=== PATIENT | female | born 1965 | race Two or more races ===

== ENCOUNTER 2018-04-28 09:23 | Outpatient (CLI) | payer OTHER | END 2018-04-28 09:25 | disposition home or self-care (01) | LOC: LAB 09:23 | DX: D64.89 Other specified anemias (principal); Z12.11 Encounter for screening for malignant neoplasm of colon; R19.5 Other fecal abnormalities; R73.09 Other abnormal glucose; E55.9 Vitamin D deficiency, unspecified; E53.8 Deficiency of other specified B group vitamins; E78.2 Mixed hyperlipidemia; M25.50 Pain in unspecified joint; M79.1 Myalgia ==

== ENCOUNTER 2018-06-20 10:10 | Outpatient (CLI) | payer OTHER | END 2018-06-20 16:24 | disposition home or self-care (01) | LOC: RAD 10:10 | DX: M25.562 Pain in left knee (principal) ==

== ENCOUNTER → 2018-06-30 | Outpatient (CLI) | payer OTHER | END | disposition home or self-care (01) | LOC: MRI 11:42 | DX: M25.562 Pain in left knee (principal) | CPT/HCPCS: 73721 ==

== ENCOUNTER 2018-07-31 12:46 | Outpatient (CLI) | payer OTHER | END 2018-07-31 12:52 | disposition home or self-care (01) | LOC: LAB 12:46 | DX: D64.89 Other specified anemias (principal); D68.0 Von Willebrand disease ==

== ENCOUNTER 2019-01-09 10:59 | Outpatient (CLI) | payer OTHER | END 2019-01-09 12:07 | disposition home or self-care (01) | LOC: LAB 10:59 | DX: J11.1 Influenza due to unidentified influenza virus with other respiratory manifestations (principal); A49.3 Mycoplasma infection, unspecified site ==

== ENCOUNTER 2019-11-07 13:45 | Outpatient (CLI) | payer OTHER | END 2019-11-07 15:15 | disposition home or self-care (01) | LOC: LAB 13:45 | DX: J11.1 Influenza due to unidentified influenza virus with other respiratory manifestations (principal); J06.9 Acute upper respiratory infection, unspecified ==

== ENCOUNTER 2025-02-28 06:03 | Day surgery (SDC) | payer OTHER ==
[2025-02-22 10:39] LABS: BASO % 0.5 % (0.1-1.2); EOS # 0.17 (0.04-0.54); EOS % 2.2 % (0.7-7.0); HEMATOCRIT 40.6 % (34.1-44.9); HEMOGLOBIN 13.6 g/dL (11.2-15.7); LYMPH # 3.41 (1.18-3.74); LYMPH % 44.1 % (19.3-53.1); MEAN CORPUSCULAR HEMOGLOBIN 29.3 pg (25.6-32.2); MONO # 0.37 (0.24-0.82); MONO % 4.8 % (4.7-12.5); NEUT # 3.72 (1.56-6.13); PLATELET COUNT 284 K/uL (163-369); RED BLOOD COUNT 4.64 M/uL (3.93-5.22); RED CELL DISTRIBUTION WIDTH 13.3 % (11.6-14.4)
[2025-02-22 10:50] VITALS: BP 109/73
[2025-02-22 10:54] LABS: URINE APPEARANCE Clear; URINE BILIRRUBIN Negative (NEGATIVE); URINE BLOOD Negative; URINE COLOR Yellow; URINE GLUCOSE Negative (NEGATIVE); URINE KETONE Negative (NEGATIVE); URINE LEUKOCYTE Negative; URINE NITRATE Negative; URINE PROTEIN Negative (NEGATIVE); URINE UROBILINOGEN 0.2 E.U./dl
[2025-02-22 11:00] LABS: INR 0.99; PARTIAL THROMBOPLASTIN TIME 32.2 SECONDS (22.0-34.0); PROTHROMBIN TIME 10.8 SECONDS (9.0-11.5)
[2025-02-22 11:03] LABS: URINE BACTERIA 283.9 uL (0.0-1933); URINE EPITHELIAL CELLS 7.1 uL (0.0-38.8); URINE RBC 4.5 uL (0.0-20.8); URINE WBC 15.5 uL (0.0-23.2)
[2025-02-22 11:08] LABS: URINE CAST 0.44 uL (0.0-1.40)
[2025-02-22 12:02] LABS: ALBUMIN 3.6 gm/dL (3.4-5.0); BILIRUBIN TOTAL 0.48 mg/dL (0.3-1.2); CALCIUM 8.9 mg/dL (8.5-10.1); CREATININE SERUM 0.64 mg/dL (0.55-1.02); GFR 94.65; GLOBULINA 4.1 G/DL (2.4-3.5); POTASSIUM 4.46 mEq/L (3.5-5.1); TOTAL PROTEIN 7.7 gm/dL (6.4-8.2)
[~2025-02-28] VITALS: Ht 157.5 cm; Wt 81.2 kg
[~2025-02-28 06:03] MED LIST: ACID REDUCER; ALLEGRA ALLERGY60 MG; CATAFLAN; GLUCOSAMINE HC500 MG; NEURONTIN600 M1 PO; VITAMIN D
[2025-02-28] MEDS ORDERED: POVIDONE-IODINE 118 ML BOTT TOP ONE (10:56)
[2025-02-28] MEDS ORDERED: CEFAZOLIN SODIUM 1,000 MG VIAL ONE (10:56)
[2025-02-28] MEDS ORDERED: MONODOX100 MG PO (12:11)
== END 2025-02-28 14:55 | disposition home or self-care (01) ==
LOC: CIR.AMB 06:03
PROVIDERS: ATTEND Obstetrics & Gynecology
DX: D25.0 Submucous leiomyoma of uterus (principal); N85.02 Endometrial intraepithelial neoplasia [EIN]; N95.0 Postmenopausal bleeding

== ENCOUNTER 2025-04-16 07:45 | Inpatient (IN) | payer OTHER ==
[~2025-04-16] VITALS: Ht 157.5 cm; Wt 78.0 kg
[~2025-04-16 07:45] MED LIST changes: +MONODOX100 MG PO
[2025-04-16 10:16] LABS: URINE APPEARANCE Clear; URINE BILIRRUBIN Negative (NEGATIVE); URINE BLOOD Negative; URINE COLOR Yellow; URINE GLUCOSE Negative (NEGATIVE); URINE KETONE Negative (NEGATIVE); URINE LEUKOCYTE Negative; URINE NITRATE Negative; URINE PROTEIN Negative (NEGATIVE); URINE UROBILINOGEN 0.2 E.U./dl
[2025-04-16 10:20] LABS: URINE BACTERIA 19.1 uL (0.0-1933); URINE EPITHELIAL CELLS 12.2 uL (0.0-38.8); URINE RBC 5.1 uL (0.0-20.8); URINE WBC 3.6 uL (0.0-23.2)
[2025-04-16 10:22] LABS: URINE CAST 0.29 uL (0.0-1.40)
[2025-04-16 11:18] LABS: ALT/SGPT 30.0 U/L (12-78); AST/SGOT 13.0 U/L (15-37); BILIRUBIN TOTAL 0.32 mg/dL (0.3-1.2); BUN CREA RATIO 24.0 (7.0-25.0); CREATININE SERUM 0.66 mg/dL (0.55-1.02); GFR 91.35; GLOBULINA 4.1 G/DL (2.4-3.5); GLUCOSE FASTING 92.0 mg/dL (65-100); OSMOLALITY SERUM 284.0 MOSM/KG (275-295)
[2025-04-16 11:57] VITALS: BP 118/70; BP 138/83
[2025-04-18] MEDS ORDERED: DESMOPRESSIN ACETATE 40 MCG/10 ML ML IV NR (06:00)
[2025-04-18] MEDS ORDERED: POVIDONE-IODINE 118 ML BOTT TOP ONE (08:15)
[2025-04-18] MEDS ORDERED: BUPIVACAINE HCL 30 ML VIAL IV ONE (08:15)
[2025-04-18] MEDS ORDERED: CEFOXITIN SODIUM 2,000 MG VIAL IV ONE (08:15)
[2025-04-18] MEDS ORDERED: METRONIDAZOLE/SODIUM CHLORIDE 500 MG/100 ML PIGGYBACK IV ONE (08:15)
[2025-04-18] MEDS ORDERED: LIDOCAINE HCL 1%/EPINEPHRINE 20ML VIAL IJ ONE (08:15)
[2025-04-18] MEDS ORDERED: ONDANSETRON HCL 2 MG/ML VIAL IV PRN (12:00)
[2025-04-18] MEDS ORDERED: RINGERS SOLUTION,LACTATED 1,000 ML IV SCH (12:00)
[2025-04-18] MEDS ORDERED: MORPHINE SULFATE 4 MG/ML CARTRIDGE IV PRN (12:00)
[2025-04-18] MEDS ORDERED: SIMETHICONE 125 MG CAPSULE PO SCH (13:00)
[2025-04-18] MEDS ORDERED: VISTASEAL DUAL APPICATOR 1 EACH APPL TOP ONE (14:15)
[2025-04-18] MEDS ORDERED: THROMBIN,HU/FIBRINOGEN/CALCIUM 10 ML SYRINGE TOP ONE (14:15)
[2025-04-18 15:00] VITALS: BP 118/70
[2025-04-18 20:00] VITALS: BP 112/72
[2025-04-18 20:25] LABS: BASO % 0.2 % (0.1-1.2); EOS # 0.06 (0.04-0.54); EOS % 0.5 % (0.7-7.0); LYMPH # 2.44 (1.18-3.74); LYMPH % 18.4 % (19.3-53.1); MEAN PLATELET VOLUME 10.30 fl (9.4-12.4); MONO # 0.63 (0.24-0.82); MONO % 4.7 % (4.7-12.5); NEUT # 10.09 (1.56-6.13); NEUT % 75.9 % (34.0-71.1); RED CELL DISTRIBUTION WIDTH 13.2 % (11.6-14.4)
[2025-04-19 02:11] VITALS: BP 110/68; O2SAT 96
[2025-04-19 06:13] VITALS: BP 125/80
[2025-04-19 06:31] LABS: BASO % 0.4 % (0.1-1.2); EOS # 0.08 (0.04-0.54); EOS % 0.7 % (0.7-7.0); LYMPH # 2.70 (1.18-3.74); LYMPH % 25.0 % (19.3-53.1); MEAN PLATELET VOLUME 10.70 fl (9.4-12.4); MONO # 0.72 (0.24-0.82); MONO % 6.7 % (4.7-12.5); NEUT # 7.25 (1.56-6.13); NEUT % 66.9 % (34.0-71.1); RED CELL DISTRIBUTION WIDTH 13.2 % (11.6-14.4)
[2025-04-19] MEDS ORDERED: ACETAMINOPHEN-1 EAC2 PO (08:17)
[2025-04-19] MEDS ORDERED: PYRIDIUM100 MG PO (08:18)
[2025-04-19 08:48] VITALS: BP 134/75
[2025-04-19] MEDS ORDERED: ACETAMINOPHEN WITH CODEINE 1 UDTAB TABLET PO ONE (11:15)
== END 2025-04-19 11:31 | disposition home or self-care (01) | DRG 742 ==
LOC: SURH 04-18 07:00 → OB/GYN 04-18 09:25 → O/R 04-18 09:25 → OB/GYN 04-18 11:59
PROVIDERS: ADMIT Obstetrics & Gynecology; ATTEND Obstetrics & Gynecology
PROC: 0UT9FZZ Resection of Uterus, Via Natural or Artificial Opening With Percutaneous Endoscopic Assistance (ICD-10-PCS; 2025-04-18)
PROC: 0UT7FZZ Resection of Bilateral Fallopian Tubes, Via Natural or Artificial Opening With Percutaneous Endoscopic Assistance (ICD-10-PCS; 2025-04-18)
PROC: 0DNW4ZZ Release Peritoneum, Percutaneous Endoscopic Approach (ICD-10-PCS; 2025-04-18)
PROC: 0TJB8ZZ Inspection of Bladder, Via Natural or Artificial Opening Endoscopic (ICD-10-PCS; 2025-04-18)
PROC: 07BC4ZZ Excision of Pelvis Lymphatic, Percutaneous Endoscopic Approach (ICD-10-PCS; 2025-04-18)
PROC: 0UT2FZZ Resection of Bilateral Ovaries, Via Natural or Artificial Opening With Percutaneous Endoscopic Assistance (ICD-10-PCS; principal; 2025-04-18 07:00)
DX: D25.1 Intramural leiomyoma of uterus (principal); D68.01 Von Willebrand disease, type 1; N73.6 Female pelvic peritoneal adhesions (postinfective); N93.9 Abnormal uterine and vaginal bleeding, unspecified; N80.03 Adenomyosis of the uterus; Z90.710 Acquired absence of both cervix and uterus; R10.2 Pelvic and perineal pain; D25.0 Submucous leiomyoma of uterus